=== PATIENT | female | born 1945 | race Caucasian/White ===

== ENCOUNTER 2017-05-01 09:33 | Emergency (ER) | payer MEDICARE, OTHER ==
[~2017-05-01] VITALS: Ht 165.1 cm; Wt 59.1 kg
[2017-05-01 10:00] VITALS: BP 105/71; PULSE 69; RESP 14; O2SAT 97
--- NOTE | 2017-05-01 10:28 | ED.REPORT ---
HPI-Extremity Problem Lower Date of Service May 01, 2017 ED Provider: Rafi Banegas MD Pt is an otherwise healthy 72 year old female who presents to the ED complaining of right ankle pain onset yesterday when she tripped and rolled her ankle inward. She has been able to walk following this event but noticed swelling of the ankle. The pt iced the ankle last night and took ibuprofen with minimal relief. The pt denies other trauma. Nursing Notes Stated Complaint: INJURY TO RIGHT ANKLE Chief Complaint: Extremity Trauma Nursing Notes Reviewed: Yes ([employer], meds not reconciled) Allergies: Coded Allergies: No Known Allergies (Unverified , 05/01/17) No Active Prescriptions or Reported Meds General Time Seen by MD: 10:21 Chief Complaint Ankle injury right Hx Obtained From: Patient Arrived By: Walk-in Onset Occurred: Yesterday Symptom Duration: Since onset Location: : Ankle right Quality: Painful Recent Healthcare: No recent doctor visit, No recent hospitalization Similar Sx Previous: No Past Medical History Past Medical History None reported Past Surgical History None reported Smoking History Unknown if Ever Smoker Social History Alcohol Use: 1-3 per day (wine with dinner) Other Social History: Good social support, Ambulatory Status Independent Review of Systems Constitutional: Denies: Fever Musculoskeletal: Reports: Extremity pain (Right ankle), Denies: Neck pain Skin: Reports Swelling (Right ankle ), Denies Rash Complete sys rev & neg: except as marked. Respiratory: Denies: Non-productive cough, Shortness of breath, Wheezing Cardiovascular: Denies: Chest pain GI: Denies: Abdominal pain, Nausea, Vomiting Physical Exam Initial Vital Signs Vital Signs (First) Date Time Temp Pulse Resp B/P Pulse Ox O2 Delivery O2 Flow Rate FiO2 05/01/17 10:00 36.8 69 14 105/71 97 Room Air Initial VS: Reviewed, Vital signs normal Lower Extremity / Pelvis / MS: No deformity, Neurologic intact, Vascular intact Ankle / Foot: No deformity, Neurologic intact, Vascular intact Right Ankle: Positive: Ecchymosis present, Swelling present... Able to ambulate normally No proximal leg tenderness Swelling and ecchymosis of the lateral malleolus and deltoid ligament General/Constitutional: Awake, Alert, No acute distress Respiratory / Chest: Atraumatic, Breath sounds NL, Breath sounds = bilat, No respiratory distress Cardiovascular: Heart rate NL, Regular rhythm, Heart sounds NL Skin: Color NL, No rash, Warm, Dry Neurologic: Oriented X3, Speech NL, No motor deficits, No sensory deficits Head / Eyes: Atraumatic, Normocephalic, PERRL, EOMI ENT: Atraumatic, Airway patent, Mucous membranes moist Neck: Atraumatic, Supple, Full range of motion Abdomen: Atraumatic, Soft, Non-tender Back: Atraumatic, Inspection NL, Full range of motion Upper Extremity / MS: Atraumatic, Inspection NL, Full range of motion Wrist / Hand: Atraumatic, Inspection NL, Full range of motion Psychiatric: Affect NL, Mood NL Interpretation & Diagnostics X-Ray Interpretation Xray Interpretation: IMPRESSION: No acute disease, 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 Dictated by: Richie Lawson M.D. on 05/01/2017 at 11:08 Approved by: Richie Lawson M.D. on 05/01/2017 at 11:08 X-Ray Ordered: Ankle right Interpretation / Wet Read by: Interpret - Radiologist Re-Eval/Medical Decision Med Decision/Clinical Course This is a pleasant 72-year-old female presents with an ankle injury that occurred yesterday. She reports is suffering an inversion injury, so some swelling over the deltoid ligament area, but still been able to ambulate, and is even walking in high heels on arrival here. For his pain is controlled with ibuprofen-but her is here being seen for abdominal pain, so she checked in that radiographs performed. She denies numbness weakness paresthesias, she has no additional complaints. On exam she does have some swelling over the lateral malleolus, but is ambulatory with an otherwise normal exam. No foot tenderness or swelling is evident. Plain radiographs are negative for fracture. Patient is reassured, she will continue conservative care, continue ibuprofen. Routine precautions reviewed. Source of Hx: Old records Re-Evaluation/Progress : Time of Eval: 10:21 Patient Status: Condition improved Re-Evaluation/Progress Note: Pt informed of the diagnosis and plan for discharge during the initial interview. The pt understands and agrees with the plan. All questions are addressed at this time. Differential Diagnosis: Positive: Sprain, Negative: Abrasion, Abscess, Achilles tendon rupture, Calcaneal fracture, Cellulitis, Compartment syndrome, Fracture, Hip fracture, Knee effusion, Venous thromboembolism Counseled Regarding: Diagnosis, Lab results, Need for follow-up, When/why to return to ED Discharge & Departure Impression: Primary Impression: Ankle sprain Encounter type: initial encounter Involved ligament of ankle: deltoid ligament Laterality: right Qualified Code: S93.421A - Sprain of deltoid ligament of right ankle, initial encounter Disposition: Home Discharge Condition All VS Reviewed: Yes Condition: Improved Additional Instructions: 1. No fractures were appreciated on x-ray. 2. Continue to ice 20 minutes at a time intermittently today. 3. Take ibuprofen up to 3 times a day as needed for soreness. 4. Take it easy. 5. Symptoms are expected to resolve with time. 6. Return if new or worsening symptoms, follow-up with your regular doctor as needed. Referrals: [facility] Scribe Attestation Portions of this note were transcribed by Yue Wilkes and Inessa Joshi. I, Dr. Banegas personally performed the history, physical exam and medical decision -making; I reviewed and confirmed the accuracy of the information in the transcribed note. copies to: [facility] Rafi Banegas MD May 01, 2017 10:28 Yue Wilkes May 01, 2017 11:56 INESSA JOSHI May 01, 2017 16:01
--- NOTE | 2017-05-01 11:10 | DRSVH ---
PROCEDURE: X-RAY RIGHT ANKLE, MINIMUM THREE VIEWS ([id number]) INDICATIONS: Pain/swelling TECHNIQUE: 3 views of the ankle were acquired. COMPARISON: None. FINDINGS: Bones: No fractures or dislocations. Ankle mortise is normally aligned. No suspicious bony lesions . Soft tissues: No tibiotalar joint effusion. Achilles tendon appears normal. 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 Dictated by: Richie Lawson M.D. on 05/01/2017 at 11:08 Approved by: Richie Lawson M.D. on 05/01/2017 at 11:08
[2017-05-01 12:04] VITALS: BP 108/68; PULSE 66; RESP 15; O2SAT 98
== END 2017-05-01 12:05 | disposition home or self-care (01) ==
LOC: SED 09:33
DX: S93.421A Sprain of deltoid ligament of right ankle, initial encounter (principal); W18.40XA Slipping, tripping and stumbling without falling, unspecified, initial encounter; Y93.01 Activity, walking, marching and hiking; Y99.8 Other external cause status; Y92.480 Sidewalk as the place of occurrence of the external cause